=== PATIENT | female | born 1960 | race Caucasian/White ===

== ENCOUNTER 2016-11-14 12:48 | Emergency (ER) | payer OTHER ==
[~2016-11-14] VITALS: Ht 162.6 cm; Wt 51.8 kg
[2016-11-14] MEDS ORDERED: MIRT15 PO (12:58)
[2016-11-14] MEDS ORDERED: GABA-531 PO (12:58)
[2016-11-14 13:29] VITALS: BP 137/83
[2016-11-14 13:30] LABS: APPEARANCE,URINE CLOUDY (CLEAR); GLUCOSE, URINE (UA) NEGATIVE (NEGATIVE); KETONES,URINE NEGATIVE (NEGATIVE); LEUKOCYTE ESTERASE ,URINE LARGE (NEGATIVE); OCCULT BLOOD,URINE SMALL (NEGATIVE); PH,URINE 5.5 (5.0-8.0); PROTEIN,URINE NEGATIVE (NEGATIVE)
[2016-11-14 13:32] LABS: ADD UA MICROSCOPIC YES
[2016-11-14 13:42] LABS: SQUAMOUS EPITHELIAL CELL,UR Few /LPF (None Seen); WBC,URINE 26-50 /HPF (0-5)
[2016-11-14] MEDS ORDERED: LEVOFLOXACIN 500 MG TABLET PO ONE (14:30)
== END 2016-11-14 14:45 | disposition home or self-care (01) ==
LOC: EMS 12:50
DX: N39.0 Urinary tract infection, site not specified (principal); Z88.1 Allergy status to other antibiotic agents; Z91.011 Allergy to milk products; Z88.8 Allergy status to other drugs, medicaments and biological substances
CPT/HCPCS: 87086; 99284

== ENCOUNTER 2016-11-17 04:35 | Emergency (ER) | payer OTHER ==
[~2016-11-17] VITALS: Ht 162.6 cm; Wt 52.0 kg
[~2016-11-17 04:35] MED LIST: GABA-531 PO; MIRT15 PO
[2016-11-17] MEDS ORDERED: LEVO500 PO (04:48)
[2016-11-17 05:00] VITALS: BP 133/76
== END 2016-11-17 05:24 | disposition left against medical advice (07) ==
LOC: EMS 04:36
DX: R06.02 Shortness of breath (principal); H53.149 Visual discomfort, unspecified; F15.90 Other stimulant use, unspecified, uncomplicated; F17.200 Nicotine dependence, unspecified, uncomplicated; Z53.21 Procedure and treatment not carried out due to patient leaving prior to being seen by health care provider